=== PATIENT | female | born 1995 | race Caucasian/White ===

== ENCOUNTER 2022-12-26 02:19 | Observation (INO) | payer SELFPAY ==
[2022-12-26] MEDS: Lactated Ringer's 1,000 ML IV SCH ×2 (02:25→09:42)
[2022-12-26] MEDS ORDERED: Tranexamic Acid 1,000 MG/10 ML VIAL IVP PRN (02:41)
[2022-12-26] MEDS ORDERED: Milk Of Magnesia 30 ML UDCUP PO PRN (02:41)
[2022-12-26] MEDS ORDERED: Diphenoxylate HCl/Atropine Tablet PO PRN (02:41)
[2022-12-26] MEDS ORDERED: Promethazine HCl 25 MG/ML VIAL IM PRN (02:41)
[2022-12-26] MEDS ORDERED: Ondansetron PF 4 MG/2 ML Vial IVP PRN (02:41)
[2022-12-26] MEDS ORDERED: Methylergonovine 0.2 MG/ML VIAL IM PRN (02:41)
[2022-12-26] MEDS ORDERED: Misoprostol 200 MCG TAB PR PRN (02:41)
[2022-12-26] MEDS ORDERED: Carboprost 250 MCG/ML AMP IM PRN (02:41)
[2022-12-26] MEDS ORDERED: Bisacodyl 10 MG SUPP PR PRN (02:41)
[2022-12-26] MEDS ORDERED: Boostrix 0.5 ML (Tdap) VIAL (>/=7 yrs of age) IM ONE (02:41)
[2022-12-26] MEDS ORDERED: Misoprostol 200 MCG TAB VAG PRN (02:41)
[2022-12-26] MEDS ORDERED: hydrALAZINE 20 MG/ML VIAL SLOW IVP PRN ×2 (02:41)
[2022-12-26] MEDS ORDERED: Docusate 100 MG CAP PO PRN (02:41)
[2022-12-26] MEDS ORDERED: Lidocaine 1% (PF) 30 ML VIAL ONE (03:02)
[2022-12-26 03:10] LABS: Mean Corpuscular HGB CONC 35.1 g/dL (32.0-36.0); Mean Corpuscular Hemoglobin 30.1 pg (27.0-33.0); Mean Corpuscular Volume 85.8 fl (81.6-98.3); Mean Platelet Volume 10.2 fl (7.4-10.4); Platelet Count 312 10x3/uL (150-450); Red Blood Cell (RBC) Count 3.32 10x6/uL (3.90-5.03); White Blood Cell (WBC) Count 32.5 10x3/uL (3.5-10.5)
[2022-12-26 03:11] VITALS: BMI 33.2
[2022-12-26] MEDS ORDERED: NS w/ Oxytocin 30 units 500 ML IV SCH ×2 (03:15)
[2022-12-26 03:46] LABS: Syphilis Antibody Nonreactive (Nonreactive); Syphilis Antibody Index 0.02 S/CO (<1.00 Non-Reactive)
[2022-12-26 03:47] LABS: HBSAg Index 0.16 S/CO (0-0.99); Hep B Surf Ag - L&D Non-Reactive S/CO (NonReactive)
[2022-12-26] MEDS ORDERED: Ibuprofen 800 MG TAB PO PRN (04:10)
[2022-12-26] MEDS ORDERED: Acetaminophen 325 MG TAB PO PRN (04:11)
[2022-12-26] MEDS ORDERED: Ampicillin/Sulbactam 3 GM in Sodium Chloride 0.9% 100 ML IVPB SCH ×2 (08:00→16:00)
[2022-12-26] MEDS ORDERED: Docusate 100 MG CAP PO SCH (09:00)
[2022-12-26 09:30] LABS: Hemoglobin 8.2 g/dL (12.0-15.5); Mean Corpuscular HGB CONC 34.7 g/dL (32.0-36.0); Mean Corpuscular Hemoglobin 30.3 pg (27.0-33.0); Mean Corpuscular Volume 87.1 fl (81.6-98.3); Mean Platelet Volume 10.5 fl (7.4-10.4); Platelet Count 264 10x3/uL (150-450); RBC Distribution Width 13.1 % (11.5-14.5); Red Blood Cell (RBC) Count 2.71 10x6/uL (3.90-5.03); White Blood Cell (WBC) Count 23.3 10x3/uL (3.5-10.5)
[2022-12-26] MEDS: Ferrous Sulfate 325 MG TAB PO SCH ×2 (09:41→16:21)
[2022-12-26 10:10] LABS: Band 13 % (5-11); Lymphocytes 13 % (21-51); Metamyelocyte 1 % (0-0); Monocytes 15 % (0-10); Neutrophil 55 % (42-75); Reactive Lymphocytes 2 % (0-10)
[2022-12-26 10:13] LABS: Hypochromia SLIGHT = 6-15 cells (100X) (0-5/hpf); Large Platelets SLIGHT; Platelet Morphology Comment Appears Adequate; Polychromasia SLIGHT = 2-3 cells (100X) (0-2/hpf)
[2022-12-26 10:14] LABS: MDiff Complete? YES
[2022-12-26 15:43] LABS: Hemoglobin 7.6 g/dL (12.0-15.5); Mean Corpuscular HGB CONC 34.1 g/dL (32.0-36.0); Mean Corpuscular Hemoglobin 29.8 pg (27.0-33.0); Mean Corpuscular Volume 87.5 fl (81.6-98.3); Mean Platelet Volume 9.8 fl (7.4-10.4); Platelet Count 252 10x3/uL (150-450); RBC Distribution Width 13.2 % (11.5-14.5); Red Blood Cell (RBC) Count 2.55 10x6/uL (3.90-5.03); White Blood Cell (WBC) Count 19.7 10x3/uL (3.5-10.5)
[2022-12-26 19:35] VITALS: BP 114/61; TEMP 98.3
== END 2022-12-26 20:19 | disposition left against medical advice (07) ==
LOC: CSHLD 02:19 → INTOOBSV 02:19 → CSHPP 11:38
PROVIDERS: ADMIT Obstetrics & Gynecology; ATTEND Obstetrics & Gynecology
DX: O72.0 Third-stage hemorrhage (principal); O70.1 Second degree perineal laceration during delivery; O36.8330 Maternal care for abnormalities of the fetal heart rate or rhythm, third trimester, not applicable or unspecified; O99.343 Other mental disorders complicating pregnancy, third trimester; F41.9 Anxiety disorder, unspecified
CPT/HCPCS: 36415; 85027; 86780; 86850; 86900; 86901; 87340; 99285; J0295; J2210; J2590; J3490; J7120